=== PATIENT | female | born 1975 | race Caucasian/White ===

== ENCOUNTER 2017-09-28 20:32 | Emergency (ER) | payer SELFPAY ==
[~2017-09-28] VITALS: Ht 170.2 cm; Wt 149.7 kg
[2017-09-28 22:22] VITALS: BP 192/108
== END 2017-09-29 02:49 | disposition left against medical advice (07) ==
LOC: ER 20:32
DX: M54.5 Low back pain (principal); R51 Headache; M54.2 Cervicalgia; Z53.21 Procedure and treatment not carried out due to patient leaving prior to being seen by health care provider; V43.52XA Car driver injured in collision with other type car in traffic accident, initial encounter; Y93.89 Activity, other specified; Y92.89 Other specified places as the place of occurrence of the external cause; Y99.8 Other external cause status
CPT/HCPCS: 70450; 72128; 72131